=== PATIENT | female | born 1975 | race Caucasian/White ===

== ENCOUNTER 2019-12-13 11:25 | Emergency (ER) | payer MEDICAID, MEDICARE ==
[~2019-12-13 11:25] MED LIST: ACYC-114 PO; CALC1TAB62 PO; CARV3.1212 PO; DIVA-59 PO; GABA-826 PO; HYDR25CA PO; MORP15TA PO; MORP60CP12 PO; ZIPR40CA3 PO
--- NOTE | 2019-12-13 12:21 | NUR ---
CALLED X 2 NO ANSWER.
--- NOTE | 2019-12-13 12:29 | NUR ---
NO ANSWER 3 CALLS
== END 2019-12-13 12:31 | disposition left against medical advice (07) ==
LOC: ED 12:25
DX: Z76.0 Encounter for issue of repeat prescription (principal); Z53.21 Procedure and treatment not carried out due to patient leaving prior to being seen by health care provider

== ENCOUNTER 2020-01-04 02:29 | Inpatient (IN) | payer MEDICAID ==
[~2020-01-04] VITALS: Ht 160 cm; Wt 86.0 kg
[2020-01-04 02:46] LABS: MEAN CORPUSCULAR HEMOGLOBIN 25.8 pg (27.0-34.8); MEAN CORPUSCULAR HGB CONC 31.7 g/dL (32.4-35.8); MEAN CORPUSCULAR VOLUME 81.5 fL (80-100); MEAN PLATELET VOLUME 6.3 fL (7.4-10.4); PLATELET COUNT 404 x10^3/uL (130-400); RED BLOOD COUNT 5.08 x10^6/uL (3.82-5.3)
--- NOTE | 2020-01-04 02:50 | NUR ---
PT UP TO RR,PROVIDED WITH URINE CUP FOR SAMPLE. PT STATED SHE IS UNABLE TO PROVIDED URINE SAMPLE
[2020-01-04] MEDS ORDERED: ONDANSETRON 2MG/ML, 2ML ONE ×2 (02:54→07:39)
[2020-01-04 02:55] LABS: ALANINE AMINOTRANSFERASE 18 U/L (12-78); ALBUMIN 3.2 g/dL (3.4-5.0); ANION GAP 8 mmol/L (5-15); CALCIUM 8.9 mg/dL (8.5-10.1); CHLORIDE 107 mmol/L (98-107); CREATININE 0.68 mg/dL (0.55-1.02)
--- NOTE | 2020-01-04 02:56 | NUR ---
PT RESTING ON GURNEY WITH EYES CLOSED, NADN, RESPIRATIONS EVEN AND UNLABORED, CALL LIGHT WITHIN REACH. AWAITING LAB RESULTS.
[2020-01-04 03:00] LABS: ALKALINE PHOSPHATASE 95 U/L (45-117); BILIRUBIN,TOTAL 0.6 mg/dL (0.2-1.0); TOTAL PROTEIN 7.4 g/dL (6.4-8.2)
[2020-01-04] MEDS ORDERED: ONDANSETRON 2MG/ML, 2ML IVPush ONE (03:00)
[2020-01-04] MEDS ORDERED: PROMETHAZINE 25 MG/ML, 1ML IM ONE (03:00)
[2020-01-04] MEDS ORDERED: SODIUM CHLORIDE FLUSH 10ML SYR IVF ONE (03:00)
[2020-01-04] MEDS ORDERED: SODIUM CHLORIDE 0.9% 1,000ML IVBOLUS ONE (03:00)
[2020-01-04] MEDS ORDERED: MORPHINE SULFATE 4 MG/ML, 1ML IVPush PRN ×2 (03:00→08:00)
[2020-01-04 03:14] LABS: BASOPHILS # (AUTO) 0.08 x10^3/uL (0-0.1); BASOPHILS % (AUTO) 1 % (0-1); EOSINOPHILS # (AUTO) 0.01 x10^3/uL (0-0.4); EOSINOPHILS % (AUTO) 0 % (1-7); LYMPHOCYTES # (AUTO) 0.54 x10^3/uL (1-3.4); LYMPHOCYTES % (AUTO) 3 % (22-44); MD SCAN; MONOCYTES % (AUTO) 3 % (2-9); NEUTROPHILS # (AUTO) 16.91 x10^3/uL (1.8-6.8); NEUTROPHILS % (AUTO) 94 % (42-75)
[2020-01-04] MEDS ORDERED: OMNIPAQUE 350 MG/ML, 100ML BOTTLE ONE (03:31)
--- NOTE | 2020-01-04 03:49 | NUR ---
pt fast asleep during medication administration, held phenergan and morphine, erp updated.
--- NOTE | 2020-01-04 03:49 | NUR ---
PT RESTING ON GURNEY, DISCUSSED ORDER FOR URINE AND STOOL SAMPLE, PT STATED " I DON'T HAVE TO GO, I ALREADY TRIED", PT NOW RESTING WITH EYES CLOSED, SNORING. MONITORS IN PLACE, CALL LIGHT WITHIN REACH
--- NOTE | 2020-01-04 04:05 | NUR ---
pt resting with eyes closed,snoring, nad. pt continues to refuse to provided urine and stool sample. will update erp, call light within reach
--- NOTE | 2020-01-04 04:49 | NUR ---
pt resting with eyes closed, nadn, monitors in place, call light within reach. chart up for recheck
[2020-01-04] MEDS ORDERED: MORPHINE SULFATE 4 MG/ML, 1ML ONE ×2 (05:09→08:51)
[2020-01-04] MEDS ORDERED: ONDANSETRON 2MG/ML, 2ML IVPush PRN (05:30)
[2020-01-04] MEDS ORDERED: LORazepam 2 MG/ML, 1ML IVPush PRN (05:30)
[2020-01-04] MEDS: SODIUM CHLORIDE 0.9% 1,000 ML IV SCH ×2 (06:18→21:17)
[2020-01-04] MEDS ORDERED: FENTANYL PF 250 MCG/5ML ONE (07:07)
[2020-01-04] MEDS ORDERED: CEFOTETAN PMX 2GM/50ML 50 ML ONE (07:18)
[2020-01-04] MEDS ORDERED: EPHEDRINE 50 MG/ML, 1ML ONE (07:26)
[2020-01-04] MEDS ORDERED: DEXAMETHASONE 4 MG/ML, 1ML ONE (07:39)
[2020-01-04] MEDS ORDERED: KETOROLAC 30 MG/1 ML ONE (07:53)
[2020-01-04] MEDS ORDERED: SUCCINYLCHOLINE 20 MG/ML, 10ML ONE (07:53)
[2020-01-04] MEDS ORDERED: PROPOFOL 10 MG/ML, 20ML ONE (07:53)
[2020-01-04] MEDS ORDERED: ROCURONIUM 10MG/ML,5ML ONE (07:53)
[2020-01-04] MEDS ORDERED: SUGAMMADEX 200 MG/2 ML IVPush ONE (07:54)
[2020-01-04] MEDS ORDERED: BUPIVACAINE/PF-EPI 0.5% 1:200K ONE (07:58)
[2020-01-04] MEDS ORDERED: ONDANSETRON 2MG/ML, 2ML IV PRN (08:00)
[2020-01-04] MEDS ORDERED: LABETALOL 5MG/ML, 20ML IV PRN (08:00)
[2020-01-04] MEDS ORDERED: hydrALAzine 20 MG/ML, 1ML IV PRN (08:00)
[2020-01-04] MEDS ORDERED: PROMETHAZINE 25 MG/ML, 1ML IV PRN (08:00)
[2020-01-04] MEDS ORDERED: MEPERIDINE/PF 25MG/ML,1ML IVPush PRN (08:00)
[2020-01-04] MEDS ORDERED: FENTANYL PF 100 MCG/2ML ONE (08:13)
[2020-01-04] MEDS: FENTANYL PF 100 MCG/2ML IV PRN ×3 (08:21→08:49)
[2020-01-04] MEDS ORDERED: MEPERIDINE/PF 25MG/ML,1ML ONE (08:22)
[2020-01-04] MEDS ORDERED: MAGNESIUM HYDROXIDE 8%, 30ML UDC PO PRN (08:30)
[2020-01-04] MEDS: morphine SULFATE 10 MG/ML, 1ML IVPush PRN ×3 (12:15→21:33)
[2020-01-04 14:31] VITALS: BP 114/71
[2020-01-04] MEDS: ENOXAPARIN 40 MG/0.4 ML SQ SCH (17:43)
[2020-01-04 18:06] LABS: MICROSCOPIC INDICATED
[2020-01-04 18:09] LABS: AMPHETAMINE SCREEN, URINE Positive (Negative); BARBITURATE SCREEN, URINE Negative (Negative); BENZODIAZEPINE SCREEN, URINE Negative (Negative); CANNABINOID SCREEN, URINE Positive (Negative); COCAINE SCREEN, URINE Negative (Negative); METHADONE SCREEN, URINE Negative (Negative); OPIATE SCREEN, URINE Positive (Negative)
[2020-01-04 18:25] LABS: CULTURE INDICATED? YES
[2020-01-04 19:18] VITALS: BP 100/68
[2020-01-05 00:20] VITALS: BP 123/73
[2020-01-05 04:31] VITALS: BP 117/77
[2020-01-05] MEDS: SODIUM CHLORIDE 0.9% 1,000 ML IV SCH ×2 (04:58→11:15)
[2020-01-05 05:55] LABS: ANION GAP 4 mmol/L (5-15); CALCIUM 8.1 mg/dL (8.5-10.1); CHLORIDE 109 mmol/L (98-107); CREATININE 0.46 mg/dL (0.55-1.02)
[2020-01-05 05:59] LABS: BASOPHILS # (AUTO) 0.02 x10^3/uL (0-0.1); BASOPHILS % (AUTO) 0 % (0-1); EOSINOPHILS # (AUTO) 0.02 x10^3/uL (0-0.4); EOSINOPHILS % (AUTO) 0 % (1-7); LYMPHOCYTES # (AUTO) 2.02 x10^3/uL (1-3.4); LYMPHOCYTES % (AUTO) 17 % (22-44); MD NO; MEAN CORPUSCULAR HEMOGLOBIN 26.3 pg (27.0-34.8); MEAN CORPUSCULAR HGB CONC 32.4 g/dL (32.4-35.8); MEAN CORPUSCULAR VOLUME 81.1 fL (80-100); MEAN PLATELET VOLUME 6.5 fL (7.4-10.4); MONOCYTES # (AUTO) 0.84 x10^3/uL (0.2-0.8); MONOCYTES % (AUTO) 7 % (2-9); NEUTROPHILS % (AUTO) 76 % (42-75); PLATELET COUNT 304 x10^3/uL (130-400); RED BLOOD COUNT 3.72 x10^6/uL (3.82-5.3); RED CELL DISTRIBUTION WIDTH 19.4 % (9.6-15.2)
[2020-01-05] MEDS: PANTOPRAZOLE 40MG TABLET PO SCH (06:00)
[2020-01-05] MEDS: morphine SULFATE 10 MG/ML, 1ML IVPush PRN ×4 (06:15→21:22)
[2020-01-05 08:01] VITALS: BP 122/80
[2020-01-05] MEDS ORDERED: POTASSIUM CHLORIDE 40 MEQ in SODIUM CHLORIDE 0.9% 500 ML IV ONE (11:30)
[2020-01-05 12:16] VITALS: BP 146/89
[2020-01-05] MEDS: ENOXAPARIN 40 MG/0.4 ML SQ SCH (16:13)
[2020-01-05 19:19] VITALS: BP 111/74
[2020-01-06 00:40] VITALS: BP 127/82
[2020-01-06] MEDS: morphine SULFATE 10 MG/ML, 1ML IVPush PRN ×2 (00:42→05:16)
[2020-01-06 05:10] LABS: CHLORIDE 108 mmol/L (98-107)
[2020-01-06 05:14] LABS: ANION GAP 5 mmol/L (5-15); CALCIUM 8.1 mg/dL (8.5-10.1); CREATININE 0.39 mg/dL (0.55-1.02)
[2020-01-06] MEDS: PANTOPRAZOLE 40MG TABLET PO SCH (05:16)
[2020-01-06 05:20] LABS: BASOPHILS # (AUTO) 0.03 x10^3/uL (0-0.1); BASOPHILS % (AUTO) 0 % (0-1); EOSINOPHILS # (AUTO) 0.15 x10^3/uL (0-0.4); EOSINOPHILS % (AUTO) 2 % (1-7); LYMPHOCYTES # (AUTO) 2.63 x10^3/uL (1-3.4); LYMPHOCYTES % (AUTO) 27 % (22-44); MD NO; MEAN CORPUSCULAR HEMOGLOBIN 26.2 pg (27.0-34.8); MEAN CORPUSCULAR HGB CONC 32.1 g/dL (32.4-35.8); MEAN CORPUSCULAR VOLUME 81.7 fL (80-100); MEAN PLATELET VOLUME 6.6 fL (7.4-10.4); MONOCYTES # (AUTO) 0.07 x10^3/uL (0.2-0.8); MONOCYTES % (AUTO) 1 % (2-9); NEUTROPHILS % (AUTO) 70 % (42-75); PLATELET COUNT 282 x10^3/uL (130-400); RED BLOOD COUNT 3.76 x10^6/uL (3.82-5.3); RED CELL DISTRIBUTION WIDTH 19.3 % (9.6-15.2)
[2020-01-06 07:25] VITALS: BP 118/75
[2020-01-06] MEDS: OXYcodone IR 5MG TABLET PO PRN ×3 (09:14→19:06)
[2020-01-06 12:00] VITALS: BP 116/75
[2020-01-06] MEDS: ENOXAPARIN 40 MG/0.4 ML SQ SCH (15:26)
[2020-01-06 18:38] VITALS: BP 128/76
[2020-01-07 01:12] VITALS: BP 122/76
[2020-01-07 05:18] LABS: BASOPHILS # (AUTO) 0.01 x10^3/uL (0-0.1); BASOPHILS % (AUTO) 0 % (0-1); EOSINOPHILS # (AUTO) 0.16 x10^3/uL (0-0.4); EOSINOPHILS % (AUTO) 2 % (1-7); LYMPHOCYTES # (AUTO) 1.95 x10^3/uL (1-3.4); LYMPHOCYTES % (AUTO) 25 % (22-44); MD NO; MEAN CORPUSCULAR HGB CONC 31.6 g/dL (32.4-35.8); MEAN CORPUSCULAR VOLUME 82.3 fL (80-100); MEAN PLATELET VOLUME 6.1 fL (7.4-10.4); MONOCYTES # (AUTO) 0.52 x10^3/uL (0.2-0.8); MONOCYTES % (AUTO) 7 % (2-9); NEUTROPHILS # (AUTO) 5.21 x10^3/uL (1.8-6.8); NEUTROPHILS % (AUTO) 66 % (42-75); PLATELET COUNT 272 x10^3/uL (130-400); RED BLOOD COUNT 3.58 x10^6/uL (3.82-5.3); RED CELL DISTRIBUTION WIDTH 19.2 % (9.6-15.2)
[2020-01-07 05:29] LABS: ANION GAP 6 mmol/L (5-15); CHLORIDE 107 mmol/L (98-107); CREATININE 0.43 mg/dL (0.55-1.02)
[2020-01-07] MEDS: PANTOPRAZOLE 40MG TABLET PO SCH (06:08)
[2020-01-07] MEDS: OXYcodone IR 5MG TABLET PO PRN ×4 (06:15→20:04)
[2020-01-07 06:48] VITALS: BP 127/86
[2020-01-07] MEDS ORDERED: MAGNESIUM HYDROXIDE 8%, 30ML UDC PO PRN (12:00)
[2020-01-07 12:53] VITALS: BP 130/81
[2020-01-07] MEDS: ENOXAPARIN 40 MG/0.4 ML SQ SCH (16:10)
[2020-01-07 18:45] VITALS: BP 128/81
[2020-01-08] MEDS: OXYcodone IR 5MG TABLET PO PRN ×5 (01:51→23:14)
[2020-01-08 02:12] VITALS: BP 122/69
[2020-01-08 04:55] LABS: BASOPHILS # (AUTO) 0.04 x10^3/uL (0-0.1); BASOPHILS % (AUTO) 1 % (0-1); EOSINOPHILS # (AUTO) 0.29 x10^3/uL (0-0.4); EOSINOPHILS % (AUTO) 3 % (1-7); LYMPHOCYTES # (AUTO) 1.78 x10^3/uL (1-3.4); LYMPHOCYTES % (AUTO) 21 % (22-44); MD NO; MEAN CORPUSCULAR HEMOGLOBIN 26.4 pg (27.0-34.8); MEAN CORPUSCULAR HGB CONC 32.7 g/dL (32.4-35.8); MEAN CORPUSCULAR VOLUME 80.8 fL (80-100); MEAN PLATELET VOLUME 6.9 fL (7.4-10.4); MONOCYTES # (AUTO) 0.48 x10^3/uL (0.2-0.8); MONOCYTES % (AUTO) 6 % (2-9); NEUTROPHILS # (AUTO) 5.93 x10^3/uL (1.8-6.8); NEUTROPHILS % (AUTO) 70 % (42-75); PLATELET COUNT 278 x10^3/uL (130-400); RED BLOOD COUNT 3.72 x10^6/uL (3.82-5.3); RED CELL DISTRIBUTION WIDTH 18.9 % (9.6-15.2)
[2020-01-08 05:05] LABS: ANION GAP 3 mmol/L (5-15); CALCIUM 7.9 mg/dL (8.5-10.1); CHLORIDE 109 mmol/L (98-107)
[2020-01-08 05:06] LABS: CREATININE 0.36 mg/dL (0.55-1.02)
[2020-01-08] MEDS: PANTOPRAZOLE 40MG TABLET PO SCH (06:39)
[2020-01-08 06:46] VITALS: BP 122/81
[2020-01-08 14:20] VITALS: BP 131/62
[2020-01-08] MEDS ORDERED: ACETAMINOPHEN 325 MG TABLET PO PRN (14:30)
[2020-01-08] MEDS: ENOXAPARIN 40 MG/0.4 ML SQ SCH (15:14)
[2020-01-08 20:07] VITALS: BP 117/78
[2020-01-09 00:51] VITALS: BP 114/63
[2020-01-09 05:01] LABS: BASOPHILS # (AUTO) 0.05 x10^3/uL (0-0.1); BASOPHILS % (AUTO) 1 % (0-1); EOSINOPHILS # (AUTO) 0.31 x10^3/uL (0-0.4); EOSINOPHILS % (AUTO) 3 % (1-7); LYMPHOCYTES # (AUTO) 1.69 x10^3/uL (1-3.4); LYMPHOCYTES % (AUTO) 16 % (22-44); MD NO; MEAN CORPUSCULAR HEMOGLOBIN 26.4 pg (27.0-34.8); MEAN CORPUSCULAR HGB CONC 32.4 g/dL (32.4-35.8); MEAN CORPUSCULAR VOLUME 81.4 fL (80-100); MEAN PLATELET VOLUME 6.6 fL (7.4-10.4); MONOCYTES # (AUTO) 0.59 x10^3/uL (0.2-0.8); MONOCYTES % (AUTO) 6 % (2-9); NEUTROPHILS # (AUTO) 7.72 x10^3/uL (1.8-6.8); NEUTROPHILS % (AUTO) 75 % (42-75); PLATELET COUNT 295 x10^3/uL (130-400); RED BLOOD COUNT 3.94 x10^6/uL (3.82-5.3); RED CELL DISTRIBUTION WIDTH 19.3 % (9.6-15.2)
[2020-01-09 05:08] LABS: ANION GAP 5 mmol/L (5-15); CHLORIDE 108 mmol/L (98-107); CREATININE 0.43 mg/dL (0.55-1.02)
[2020-01-09] MEDS: OXYcodone IR 5MG TABLET PO PRN (06:22)
[2020-01-09] MEDS: PANTOPRAZOLE 40MG TABLET PO SCH (06:22)
[2020-01-09 07:06] VITALS: BP 131/88
[2020-01-09] MEDS ORDERED: PANT40TA5 PO (11:05)
[2020-01-09] MEDS ORDERED: ACET325T26 PO (11:11)
[2020-01-09 12:21] VITALS: BP 118/81
== END 2020-01-09 12:35 | disposition home or self-care (01) | DRG 224 ==
LOC: ED 05:28 → EDIP 05:32 → 4NE 06:10
PROVIDERS: ADMIT Internal Medicine; ATTEND Hospitalist
PROC: 0DNB0ZZ Release Ileum, Open Approach (ICD-10-PCS; principal; 2020-01-04 07:15)
DX: K56.52 Intestinal adhesions [bands] with complete obstruction (principal); D25.9 Leiomyoma of uterus, unspecified; E87.6 Hypokalemia; F15.10 Other stimulant abuse, uncomplicated; F17.200 Nicotine dependence, unspecified, uncomplicated; F41.9 Anxiety disorder, unspecified; I10 Essential (primary) hypertension; K21.9 Gastro-esophageal reflux disease without esophagitis; K44.9 Diaphragmatic hernia without obstruction or gangrene; Z59.0 Homelessness; Z98.51 Tubal ligation status; F60.3 Borderline personality disorder; F39 Unspecified mood [affective] disorder; K56.1 Intussusception; N83.10 Corpus luteum cyst of ovary, unspecified side; R93.89 Abnormal findings on diagnostic imaging of other specified body structures
CPT/HCPCS: 36415; 74018; 74177; 80048; 80053; 80307; 81001; 83605; 83690; 84703; 85025; 87086; 89055; 96361; 96374; 96375; G0378; J1100; J1650; J1885; J2405; J2704; J3010; J3480; Q9967; J0330; J2175; J2270; J3490; J7030; J7040

== ENCOUNTER 2020-02-08 09:00 | Emergency (ER) | payer MEDICARE, MEDICAID ==
[~2020-02-08] VITALS: Ht 162.6 cm; Wt 84.5 kg
[~2020-02-08 09:00] MED LIST changes: +ACET325T26 PO; +PANT40TA5 PO
--- NOTE | 2020-02-08 09:34 | NUR ---
Pt ambulated back to room with a smooth and steady gait, resting on gurney, changed into gown, NAD, RESP WNL, call light on lap, P/W/D, WCTM.
--- NOTE | 2020-02-08 09:54 | NUR ---
pt to CT, NAD, RESP WNL, P/W/D. Addendum: 02/08/20 at 1019 by [facility] xray, not CT
[2020-02-08 09:56] LABS: BASOPHILS % (AUTO) 0 % (0-1); EOSINOPHILS # (AUTO) 0.01 x10^3/uL (0-0.4); EOSINOPHILS % (AUTO) 0 % (1-7); LYMPHOCYTES # (AUTO) 1.21 x10^3/uL (1-3.4); LYMPHOCYTES % (AUTO) 9 % (22-44); MD NO; MEAN CORPUSCULAR HEMOGLOBIN 25.4 pg (27.0-34.8); MEAN CORPUSCULAR HGB CONC 31.9 g/dL (32.4-35.8); MEAN CORPUSCULAR VOLUME 79.7 fL (80-100); MONOCYTES # (AUTO) 0.67 x10^3/uL (0.2-0.8); MONOCYTES % (AUTO) 5 % (2-9); NEUTROPHILS % (AUTO) 86 % (42-75); PLATELET COUNT 308 x10^3/uL (130-400); RED BLOOD COUNT 4.07 x10^6/uL (3.82-5.3); RED CELL DISTRIBUTION WIDTH 18.4 % (9.6-15.2)
[2020-02-08] MEDS ORDERED: DICYCLOMINE 10 MG/ML, 2ML IM ONE (10:00)
[2020-02-08] MEDS ORDERED: ONDANSETRON ODT 4 MG PO ONE (10:00)
[2020-02-08] MEDS ORDERED: ONDANSETRON ODT 4 MG ONE (10:02)
[2020-02-08] MEDS ORDERED: DICYCLOMINE 10 MG/ML, 2ML ONE (10:03)
--- NOTE | 2020-02-08 10:08 | NUR ---
Pt back from CT, resting on gurney, NAD, RESP WNL, call light on lap, P/W/D, WCTM. Medicated per NOV. waiting for test results.
[2020-02-08 10:10] LABS: ALBUMIN 2.6 g/dL (3.4-5.0); ANION GAP 4 mmol/L (5-15); CALCIUM 8.2 mg/dL (8.5-10.1); CHLORIDE 111 mmol/L (98-107)
[2020-02-08 10:14] LABS: ALKALINE PHOSPHATASE 85 U/L (45-117); BILIRUBIN,TOTAL 0.4 mg/dL (0.2-1.0); TOTAL PROTEIN 6.6 g/dL (6.4-8.2)
[2020-02-08 10:18] LABS: ALANINE AMINOTRANSFERASE 24 U/L (12-78)
--- NOTE | 2020-02-08 10:20 | NUR ---
xray, not CT
--- NOTE | 2020-02-08 10:45 | NUR ---
Nata TORRES helped pt up to commode, pt transferred smoothly, had a bowel movement and is back in [facility], P/W/D, RESP WNL, WCTM. waiting on CT results.
[2020-02-08] MEDS ORDERED: OMNIPAQUE 350 MG/ML, 100ML BOTTLE ONE (11:08)
--- NOTE | 2020-02-08 11:13 | NUR ---
pt resting in gurney, eyes closed, RESP heard and WNL, call light on lap, NAD, P/W/D, WCTM.
[2020-02-08 11:27] VITALS: BP 149/81
--- NOTE | 2020-02-08 11:28 | NUR ---
Patient given discharge instructions and they have confirmed that they understand the instructions. Patient ambulatory with steady gait. Pt given community resources for medications, NAD, P/W/D, FCS no SOB.
== END 2020-02-08 11:47 | disposition home or self-care (01) ==
LOC: ED 09:40
DX: K52.9 Noninfective gastroenteritis and colitis, unspecified (principal); R11.2 Nausea with vomiting, unspecified; Z90.49 Acquired absence of other specified parts of digestive tract; Z88.0 Allergy status to penicillin; Z88.5 Allergy status to narcotic agent
CPT/HCPCS: 36415; 74022; 74177; 80053; 83690; 84703; 85025; 96372; 99285; J0500; Q0162; Q9967

== ENCOUNTER 2020-04-13 06:27 | Emergency (ER) | payer MEDICARE, MEDICAID ==
[~2020-04-13] VITALS: Ht 160 cm; Wt 81.3 kg
[~2020-04-13 06:27] MED LIST changes: -PANT40TA5 PO; +PANT40TA6 PO
--- NOTE | 2020-04-13 07:15 | NUR ---
PT IN WITH CHIEF COMPLAINT OF RECENT METH USE. RESTING IN BED, DISORGANIZED THOUGHTS. VSS.
[2020-04-13 07:31] LABS: BASOPHILS # (AUTO) 0.07 x10^3/uL (0-0.1); BASOPHILS % (AUTO) 1 % (0-1); EOSINOPHILS # (AUTO) 0.15 x10^3/uL (0-0.4); EOSINOPHILS % (AUTO) 2 % (1-7); LYMPHOCYTES # (AUTO) 1.67 x10^3/uL (1-3.4); LYMPHOCYTES % (AUTO) 23 % (22-44); MD NO; MEAN CORPUSCULAR HEMOGLOBIN 23.5 pg (27.0-34.8); MEAN CORPUSCULAR HGB CONC 30.7 g/dL (32.4-35.8); MEAN PLATELET VOLUME 6.1 fL (7.4-10.4); MONOCYTES # (AUTO) 0.42 x10^3/uL (0.2-0.8); MONOCYTES % (AUTO) 6 % (2-9); NEUTROPHILS # (AUTO) 4.82 x10^3/uL (1.8-6.8); NEUTROPHILS % (AUTO) 68 % (42-75); PLATELET COUNT 323 x10^3/uL (130-400); RED BLOOD COUNT 4.26 x10^6/uL (3.82-5.3); RED CELL DISTRIBUTION WIDTH 18.2 % (9.6-15.2)
[2020-04-13 07:42] LABS: ALBUMIN 2.9 g/dL (3.4-5.0); ANION GAP 4 mmol/L (5-15); CALCIUM 8.4 mg/dL (8.5-10.1); CHLORIDE 113 mmol/L (98-107); CREATININE 0.49 mg/dL (0.55-1.02)
[2020-04-13 07:47] LABS: SALICYLATE LEVEL < 1.7 mg/dL (2.8-20.0)
--- NOTE | 2020-04-13 08:38 | NUR ---
Patient resting comfortably in bed, drowsy, no complaints at this time.
--- NOTE | 2020-04-13 09:28 | NUR ---
STEADY AMBULATION TO BATHROOM, SNACK PROVIDED, URINE COLLECTED. PT BACK RESTING IN BED.
[2020-04-13 10:09] LABS: AMPHETAMINE SCREEN, URINE Negative (Negative); BARBITURATE SCREEN, URINE Negative (Negative); BENZODIAZEPINE SCREEN, URINE Negative (Negative); CANNABINOID SCREEN, URINE Positive (Negative); COCAINE SCREEN, URINE Negative (Negative); METHADONE SCREEN, URINE Negative (Negative); OPIATE SCREEN, URINE Negative (Negative)
--- NOTE | 2020-04-13 10:30 | NUR ---
PT RESTING IN BED. CALL LIGHT IN REACH.
[2020-04-13 11:21] VITALS: BP 133/74
--- NOTE | 2020-04-13 11:30 | NUR ---
PT RESTING IN BED, CALL LIGHT IN REACH.
--- NOTE | 2020-04-13 12:41 | NUR ---
PSYCH TO SEE PT.
--- NOTE | 2020-04-13 13:34 | NUR ---
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 PT LEFT OUT THE DOOR, YELLING AND SCREAMING, GAIT STEADY.
== END 2020-04-13 13:38 | disposition left against medical advice (07) ==
LOC: ED 06:59
DX: F23 Brief psychotic disorder (principal); Z90.49 Acquired absence of other specified parts of digestive tract; F17.200 Nicotine dependence, unspecified, uncomplicated
CPT/HCPCS: 36415; 80048; 80307; 82040; 85025; 99283

== ENCOUNTER 2020-05-14 00:54 | Emergency (ER) | payer MEDICARE, MEDICAID ==
[~2020-05-14] VITALS: Ht 167.6 cm; Wt 77.0 kg
[~2020-05-14 00:54] MED LIST changes: +PANT40TA5 PO; -PANT40TA6 PO
--- NOTE | 2020-05-14 00:59 | NUR ---
WHEN ASKED WHY ARE YOU CRYING PT STATES "WHY THE F DO YOU THINK I'M CRYING YOU C, YOU FING B" PT REFUSED TEMPERATURE. PT STATES THIS RN IS LAUGHING AT HER. 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 PT STATES "I'M DEHYDRATED" CHEIF COMPLAINT.
[2020-05-14] MEDS ORDERED: MIDAZOLAM 1 MG/ML, 5ML ONE (01:07)
--- NOTE | 2020-05-14 01:13 | NUR ---
PT GIVEN WATER BY ERP. PT HITS WATER OUT OF ARNOLDO, THE ERP'S HAND, THEN STARTS YELLING THAT ARNOLDO THREW WATER ON HER. PT GETS OUT OF BED, WALKS INTO THE MAN WHILE YELLING "YOU THREW FING WATER ON ME, F YOU B." MAO CALLED. PT REFUSES TO GATHER BELONGINGS TO BE ESCORTED OUT BY SECUIRITY. SEFERINO CALLED FOR PT TRESSPASSING. Addendum: 05/14/20 at 0122 by [email or web address] PT ACTIVELY SWINGING AT THE ERP, WHICH IS WHY SECUIRITY WAS CALLED.
[2020-05-14] MEDS ORDERED: MIDAZOLAM 1 MG/ML, 5ML IM ONE (01:30)
== END 2020-05-14 01:38 | disposition home or self-care (01) ==
LOC: ED 01:15
DX: F15.159 Other stimulant abuse with stimulant-induced psychotic disorder, unspecified (principal); R45.1 Restlessness and agitation; R00.0 Tachycardia, unspecified; Z90.49 Acquired absence of other specified parts of digestive tract
CPT/HCPCS: 99283

== ENCOUNTER 2020-12-12 05:40 | Emergency (ER) | payer MEDICAID, MEDICARE ==
[~2020-12-12] VITALS: Ht 162.6 cm; Wt 78.0 kg
[~2020-12-12 05:40] MED LIST changes: -PANT40TA5 PO; +PANT40TA6 PO
[2020-12-12 05:46] VITALS: BP 131/84
--- NOTE | 2020-12-12 05:58 | NUR ---
Pt walked to bathroom to provide sample, then requested pt change into a gown.
--- NOTE | 2020-12-12 06:04 | NUR ---
Pt provided concentrated, turbid yellow urine not enough to seperate into tubes, walked to lab. Pt now getting undressed, pelvic cart outside room.
[2020-12-12] MEDS ORDERED: LIDOCAINE 2% VISCOUS 15 ML UDC ONE (06:27)
[2020-12-12] MEDS ORDERED: AZITHROMYCIN 500 MG TABLET PO ONE (06:30)
[2020-12-12] MEDS ORDERED: CEFTRIAXONE 250 MG IM ONE (06:30)
[2020-12-12] MEDS ORDERED: LIDOCAINE-MPF 1%, 5ML ONE (06:35)
[2020-12-12] MEDS ORDERED: AZITHROMYCIN 500 MG TABLET ONE (06:35)
[2020-12-12] MEDS ORDERED: CEFTRIAXONE 1,000 MG ONE (06:35)
[2020-12-12 06:41] LABS: CLUE CELLS NONE SEEN (NONE SEEN); WET PREP WBCS MODERATE (FEW)
--- NOTE | 2020-12-12 06:41 | NUR ---
Verbal order for viscous lido to facilitate ERP pelvic exam. Pt tolerated well. Medicated per order, few 7up provided.
--- NOTE | 2020-12-12 06:41 | NUR ---
This RN chaparoned ERP for pelvic exam.
[2020-12-12 06:44] LABS: MICROSCOPIC INDICATED
--- NOTE | 2020-12-12 07:00 | NUR ---
report from lionel damon pt sitting on chair in street clothes listening to music. nad. no needs at this time.
--- NOTE | 2020-12-12 07:33 | NUR ---
Patient given discharge instructions and they have confirmed that they understand the instructions. Patient ambulatory with steady gait. Pt refused d/c packet stated she wanted it "shredded" d/t no privacy outside the hospital. Pt stated she understands what was in the packet and only wanted her prescription sheet.
== END 2020-12-12 07:37 | disposition home or self-care (01) ==
LOC: ED 06:42
DX: A56.02 Chlamydial vulvovaginitis (principal); A54.02 Gonococcal vulvovaginitis, unspecified; B00.9 Herpesviral infection, unspecified; N89.8 Other specified noninflammatory disorders of vagina; Z88.0 Allergy status to penicillin
CPT/HCPCS: 81001; 87086; 87210; 87491; 87591; 87808; 96372; 99284; J0696